=== PATIENT | male | born 1965 | race Caucasian/White ===

== ENCOUNTER 2022-11-30 00:37 | Emergency (ER) | payer OTHER, SELFPAY ==
[2022-11-30 00:39] VITALS: BP 125/88; PULSE 61; RESP 19; TEMP 36.6; O2SAT 95; BMI 32.0
--- NOTE | 2022-11-30 00:41 | CTR_ITS ---
PROCEDURE INFORMATION: Exam: CT Abdomen And Pelvis With Contrast Exam date and time: 11/30/2022 1:10 AM Age: 57 years old Clinical indication: Abdominal pain; Generalized; Patient HX: Patient was having diffuse abd pain with nausea prior to using bathroom and having syncopal episode. TECHNIQUE: Imaging protocol: Computed tomography of the abdomen and pelvis with contrast. Radiation optimization: All CT scans at this facility use at least one of these dose optimization techniques: automated exposure control; mA and/or kV adjustment per patient size (includes targeted exams where dose is matched to clinical indication); or iterative reconstruction. Contrast material: OMNI 350; Contrast volume: 100 ml; Contrast route: INTRAVENOUS (IV); REPORTING DATA: Count of CT and Cardiac NM exams in prior 12 months: This patient has received 0 known CTs and 0 known cardiac nuclear medicine studies in the 12 months prior to the current study. COMPARISON: CR (CHEST, ) 11/30/2022 1:00 AM RADIATION DOSE METRICS: Total DLP (mGy-cm): 1042.24 FINDINGS: Lungs: The lung bases are clear. No effusion Liver: Normal. No mass. Gallbladder and bile ducts: No wall thickening, pericholecystic fluid or stones. Pancreas: Normal. No ductal dilation. Spleen: Normal. No splenomegaly. Adrenal glands: Normal. No mass. Kidneys and ureters: Normal. No hydronephrosis. Stomach and bowel: Mild amount of formed stool in the colon. Appendix: No evidence of appendicitis. Intraperitoneal space: Unremarkable. No free air. No significant fluid collection. Vasculature: Unremarkable. No abdominal aortic aneurysm. Lymph nodes: Unremarkable. No enlarged lymph nodes. Urinary bladder: Unremarkable as visualized. Reproductive: Unremarkable as visualized. Bones/joints: Unremarkable. No acute fracture. Soft tissues: Unremarkable. CT/CT abdomen pelvis w con* [id number] IMPRESSION: Mild constipation.
--- NOTE | 2022-11-30 00:41 | XRR_ITS ---
PROCEDURE INFORMATION: Exam: XR Chest Exam date and time: 11/30/2022 1:00 AM Age: 57 years old Clinical indication: Other: Syncope; Patient HX: Syncopal episode TECHNIQUE: Imaging protocol: Radiologic exam of the chest. Views: 1 view. COMPARISON: CR XR cervical spine fl/ex [id number] 11/13/2016 2:17 PM FINDINGS: Lungs: There are low lung volumes. Otherwise, the lungs are clear. Pleural spaces: Unremarkable. No pleural effusion. No pneumothorax. Heart/Mediastinum: Unremarkable. No cardiomegaly. Bones/joints: Unremarkable. XR/XR chest 1V portable [id number] IMPRESSION: There are low lung volumes. Otherwise, the lungs are clear.
--- NOTE | 2022-11-30 00:41 | CTR_ITS ---
PROCEDURE INFORMATION: Exam: CT Head Without Contrast Exam date and time: 11/30/2022 1:05 AM Age: 57 years old Clinical indication: Injury or trauma; Fall; Blunt trauma (contusions or hematomas); Syncope and collapse; Patient HX: Patient had syncopal episode while standing up from toilet at home. Struck head. Abrasion to frontal. TECHNIQUE: Imaging protocol: Computed tomography of the head without contrast. Radiation optimization: All CT scans at this facility use at least one of these dose optimization techniques: automated exposure control; mA and/or kV adjustment per patient size (includes targeted exams where dose is matched to clinical indication); or iterative reconstruction. REPORTING DATA: Count of CT and Cardiac NM exams in prior 12 months: This patient has received 0 known CTs and 0 known cardiac nuclear medicine studies in the 12 months prior to the current study. COMPARISON: CR XR cervical spine fl/ex [id number] 11/13/2016 2:17 PM RADIATION DOSE METRICS: Total DLP (mGy-cm): 1135.68 FINDINGS: Brain: No acute abnormality. No edema or mass effect. No hemorrhage. Cerebral ventricles: No acute abnormality. No significant ventriculomegaly. Paranasal sinuses: Minimal to mild sinus mucosal thickening without sinus fluid or air fluid level. Mastoid air cells: No acute abnormality. No significant mastoid effusion. Bones/joints: No acute osseous abnormality. No acute fracture. Soft tissues: No significant soft tissue abnormalities. CT/CT head wo con* [id number] IMPRESSION: No evidence of acute intracranial abnormality.
--- NOTE | 2022-11-30 00:41 | ECG_ITS ---
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 Measurements Intervals [place] Rate: 58 P: 9 [place]: 163 QRS: -8 QRSD: 101 T: -15 QT: 434 QTc: 428 Interpretive Statements SINUS BRADYCARDIA SEPTAL MYOCARDIAL INFARCTION , PROBABLY RECENT [40+ ms Q WAVE IN V1/V2] PROBABLE LATERAL MYOCARDIAL INFARCTION , OF INDETERMINATE AGE [35 ms Q WAVE IN I/aVL/V5/V6] No previous ECG available for comparison Electronically Signed On 12-02-2022 6:11:17 CDT by Tri Santana M.D. [email or web address] [email or web address]/NU/[id number] f
--- NOTE | 2022-11-30 00:44 | W.ED.SYNCOPE ---
HPI - Syncope General: Chief Complaint: Syncope Stated Complaint: syncope/fall Time Seen by Provider: 11/30/22 00:38 Source: patient Mode of arrival: ambulatory Limitations: no limitations History of Present Illness: Patient is a 57-year-old male states he had gotten up tonight states he having some abdominal pain and felt nauseous feel he can go the bathroom he went and sat on the toilet did not have a bowel movement still having abdominal pain after got up to the toilet he felt lightheaded and had a syncopal event he did hit his head when he syncopized his and found him he is now awake and alert he states that he just feels kind of weak and still has the abdominal pain is diffuse in nature he rates it a 5 out of 10 he has had nausea as well he denies any chest pain he does have a slight headache from where he hit his head no lacerations Associated symptoms: Reports abdominal pain, headache(s) and nausea; Deny chest pain or fever(s) Review of Systems Const: Denies: fever(s) or chills Eyes: Denies: eye discomfort ENMT: Denies: throat pain or dental pain Card: Reports: syncope; Denies: chest pain Resp: Denies: dyspnea GI: Reports: abdominal pain and nausea; Denies: vomiting or diarrhea : Denies: dysuria Musc: Denies: neck pain or back pain Skin/Breast: Denies: rash Neuro: Reports: headache(s) [facility] PFSH: Medical History (Updated 11/30/22 @ 03:36 by Elysia Prince MD) No pertinent past medical history Social History (Updated 11/30/22 @ 00:46 by Elysia Prince MD) Substance/Drug Use: never Physical Exam Const: COMMON NORMALS: patient oriented x3 HENMT: COMMON NORMALS: normocephalic HEAD & SCALP: normocephalic Eye: COMMON NORMALS: Equal, round and reactive pupils present and EOMs intact bilaterally PUPIL: Yes Equal, round and reactive pupils present Neck/C-Spine: COMMON NORMALS: full ROM and supple Chest: COMMONS NORMALS: normal inspection of the chest and normal palpation of entire chest wall Resp: COMMON NORMALS: normal respiratory effort, No retractions, No use of accessory muscles and clear to auscultation bilaterally AUSCULTATION: clear to auscultation bilaterally Cardio: COMMON NORMALS: regular rate, regular rhythm and No murmurs present (Cardio) RATE: regular rate RHYTHM: regular rhythm GI: COMMON NORMALS: Normal to inspection, nondistended, normoactive bowel sounds present, Soft to palpation and no masses PALPATION: Yes Soft to palpation OTHER: diffuse tenderness Extremity: COMMON NORMALS: normal to inspection and full ROM Neuro: COMMON NORMALS: patient oriented x3, moves all extremities and no focal motor deficits Psych: COMMON NORMALS: mental status grossly normal, Normal thought process present and cooperative THOUGHT PROCESS: Normal thought process present Skin: COMMON NORMALS: no rashes or lesions noted and no wounds GENERAL SKIN EXAM: no rashes or lesions noted Course Vital Signs: Vital signs: Vital Signs Temperature 97.8 F 11/30/22 00:39 Pulse Rate 80 11/30/22 03:45 Respiratory Rate 20 H 11/30/22 01:33 Blood Pressure 131/89 11/30/22 03:45 Pulse Oximetry 100 11/30/22 03:45 Oxygen Delivery Me thod Room Air 11/30/22 03:14 MDM - Syncope Medical Decision Making Patient presents with a syncopal event loss with abdominal pain and syncopal event is likely a vasovagal episode from going to the bathroom and is nausea and pain blood work including 2 troponins are normal here CT of his head and abdominal been is normal. He is stable for discharge he feels much improved he is to follow-up with PCP and return if worsening Lab Data 11/30/22 00:47 11/30/22 00:47 Radiology Impressions Abdomen/Pelvis CT 11/30/22 00:41 IMPRESSION: Mild constipation. Chest X-Ray 11/30/22 00:41 IMPRESSION: There are low lung volumes. Otherwise, the lungs are clear. Head CT 11/30/22 00:41 IMPRESSION: No evidence of acute intracranial abnormality. Laboratory Results WBC 10.8 10^3/uL (4.0-10.0) H 11/30/22 00:47 RBC 4.28 10^6/uL (4.1-5.3) 11/30/22 00:47 Hgb 12.3 g/dL (11.7-16.6) 11/30/22 00:47 Hct 37.7 % (42.0-52.0) L 11/30/22 00:47 MCV 88.1 fl (80-94) 11/30/22 00:47 MCH 28.7 pg (28.0-34.0) 11/30/22 00:47 MCHC 32.6 g/dL (30.0-36.0) 11/30/22 00:47 RDW 12.7 % (12.1-15.1) 11/30/22 00:47 Plt Count 286 10^3/cmm (130-400) 11/30/22 00:47 MPV 10.8 fL (7.4-10.4) H 11/30/22 00:47 Neut % (Auto) 47.0 % 11/30/22 00:47 Lymph % (Auto) 41.7 % 11/30/22 00:47 Morrow % (Auto) 7.4 % 11/30/22 00:47 Eos % (Auto) 3.0 % 11/30/22 00:47 Baso % (Auto) 0.6 % 11/30/22 00:47 Neut # (Auto) 5.07 10^3/uL (1.8-7.7) 11/30/22 00:47 Lymph # (Auto) 4.5 10^3/uL (0.8-4.8) 11/30/22 00:47 Morrow # (Auto) 0.8 10^3/uL (0.2-0.9) 11/30/22 00:47 Eos # (Auto) 0.3 10^3/uL (0.0-0.8) 11/30/22 00:47 Baso # (Auto) 0.1 10^3/uL (0.0-0.1) 11/30/22 00:47 Nucleated RBC % (auto) 0 % 11/30/22 00:47 Nucleated RBCs # 0.0 /100WBC 11/30/22 00:47 Sodium 138 mmol/L (136-145) 11/30/22 00:47 Potassium 3.6 mmol/L (3.5-5.1) 11/30/22 00:47 Chloride 103 mmol/L (98-107) 11/30/22 00:47 Carbon Dioxide 23 mmol/L (22-29) 11/30/22 00:47 Anion Gap 15.6 (5-19) 11/30/22 00:47 BUN 19 mg/dL (6-20) 11/30/22 00:47 Creatinine 1.0 mg/dL (0.7-1.2) 11/30/22 00:47 GFR Calculation 77.3 mL/min (90-130) L 11/30/22 00:47 Glucose 124 mg/dL (65-115) H 05 00:47 Calculated Osmolality 290 mOsm/kg (285-295) 11/30/22 00:47 Calcium 8.9 mg/dL (8.5-10.5) 11/30/22 00:47 Total Bilirubin 0.3 mg/dL (0.15-1.2) 11/30/22 00:47 AST 22 U/L (0-40) 11/30/22 00:47 ALT 26 U/L (0-41) 11/30/22 00:47 Alkaline Phosphatase 61 U/L (40-130) 11/30/22 00:47 Troponin T Baseline 9 ng/L (0-15) 11/30/22 00:47 Troponin T 120 Minute 8.89 ng/L (0-15) 11/30/22 03:09 Delta Troponin T -0.11 ABS# (0-10) L 11/30/22 03:09 Total Protein 6.9 g/dL (6.6-8.7) 11/30/22 00:47 Albumin 4.4 g/dL (3.5-5.2) 11/30/22 00:47 Globulin 2.5 g/dL (1.3-4.6) 11/30/22 00:47 Lipase 40 U/L (13-60) 11/30/22 00:47 EKG Data EKG 1: I personally reviewed and interpreted this EKG as follows: EKG interpretation date: 11/30/22 EKG interpretation time: 00:41 Interpretation: sinus lili hr [address] or t wave abnormalities qrs 101 qtc 431 Discharge Plan Discharge Patient Disposition: Home Clinical Impression: Syncope, Abdominal pain Prescriptions: New ondansetron 4 mg tablet,disintegrating 4 mg PO Q6H PRN (Reason: nausea and vomiting) Qty: 14 0RF No Action erythromycin 500 mg tablet 500 mg PO BID 10 Days Qty: 20 0RF Discharge Orders: Discharge ED (Routine); Ordered 11/30/22 Ordered By: Elysia Prince Referrals: Sterling Garvin FNP [Nurse Practitioner] - 1-3 days Discharge Diet: Advance as tolerated Discharge Activity: Resume usual activity Patient Instructions: Syncope (ED), Abdominal Pain (ED) Coding Level of Care Code ED 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
[2022-11-30] MEDS: ondansetron 2 mg/ML SDV 2 mL 4 MG IVP ×2 (00:45→02:10)
[2022-11-30] MEDS: sodium chloride 0.9% 1,000 ML 999 ML IV ×2 (00:46→02:11)
[2022-11-30 01:00] LABS: Basophils # 0.1 10^3/uL (0.0-0.1); Basophils % 0.6 %; Eosinophils # 0.3 10^3/uL (0.0-0.8); Hematocrit 37.7 % (42.0-52.0); Hemoglobin 12.3 g/dL (11.7-16.6); Lymphocytes # 4.5 10^3/uL (0.8-4.8); Lymphocytes % 41.7 %; Mean Corpuscular HGB Conc 32.6 g/dL (30.0-36.0); Mean Corpuscular Hemoglobin 28.7 pg (28.0-34.0); Mean Corpuscular Volume 88.1 fl (80-94); Mean Platelet Volume 10.8 fL (7.4-10.4); Monocytes # 0.8 10^3/uL (0.2-0.9); Monocytes % 7.4 %; Neutrophils # 5.07 10^3/uL (1.8-7.7); Nucleated Red Blood Cells % 0 %; Platelet Count 286 10^3/cmm (130-400); Red Blood Count 4.28 10^6/uL (4.1-5.3); Red Cell Distribution Width 12.7 % (12.1-15.1); White Blood Count 10.8 10^3/uL (4.0-10.0)
[2022-11-30] MEDS: iohexol 350 mg/mL 500 mL Btl (per mL) IV (01:07)
[2022-11-30 01:15] LABS: Alanine Aminotransferase 26 U/L (0-41); Albumin Level 4.4 g/dL (3.5-5.2); Alkaline Phosphatase 61 U/L (40-130); Anion Gap 15.6 (5-19); Aspartate Amino Transferase 22 U/L (0-40); Blood Urea Nitrogen 19 mg/dL (6-20); Calcium 8.9 mg/dL (8.5-10.5); Carbon Dioxide 23 mmol/L (22-29); Chloride 103 mmol/L (98-107); Globulin 2.5 g/dL (1.3-4.6); Glomerular Filtration Rate 77.3 mL/min (90-130); Glucose 124 mg/dL (65-115); Lipase 40 U/L (13-60); Osmolality Calculated 290 mOsm/kg (285-295); Potassium 3.6 mmol/L (3.5-5.1); Sodium 138 mmol/L (136-145); Total Bilirubin 0.3 mg/dL (0.15-1.2); Total Protein 6.9 g/dL (6.6-8.7)
[2022-11-30 01:17] LABS: Troponin(5th) Baseline 9 ng/L (0-15)
[2022-11-30 01:33] VITALS: BP 117/86; PULSE 64; RESP 20; O2SAT 100
--- NOTE | 2022-11-30 02:41 | ECG_ITS ---
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 Measurements Intervals [place] Rate: 77 P: -3 NM: 160 QRS: -11 QRSD: 98 T: -12 QT: 378 QTc: 429 Interpretive Statements SINUS RHYTHM POSSIBLE LEFT ATRIAL ENLARGEMENT [-0.1mV P-WAVE IN V1/V2] SEPTAL MYOCARDIAL INFARCTION , OF INDETERMINATE AGE [40+ ms Q WAVE IN V1/V2] PROBABLE LATERAL MYOCARDIAL INFARCTION , PROBABLY OLD [35 ms Q WAVE IN I/aVL/V5/V6] No previous ECG available for comparison Electronically Signed On 12-02-2022 6:57:33 CDT by Tri Santana M.D. [email or web address] [email or web address].[employer]/store/OM/[id number]/[id number]
[2022-11-30 03:10] VITALS: BP 109/69; BP 131/84; BP 134/87; PULSE 82; PULSE 83; PULSE 85
[2022-11-30 03:14] VITALS: PULSE 81; O2SAT 99
[2022-11-30 03:33] LABS: Troponin 5 2HR 8.89 ng/L (0-15)
[2022-11-30 03:45] VITALS: BP 131/89; PULSE 80; O2SAT 100
[2022-11-30 03:52] LABS: Troponin 5 2HR Delta -0.11 ABS# (0-10)
--- NOTE | 2022-12-13 13:21 | DCPLANNER ---
TCM called patient due to no primary care physician - no answer at this time.
== END 2022-11-30 03:46 | disposition home or self-care (01) ==
PROVIDERS: Emergency Provider Emergency Medicine
DX: R55 Syncope and collapse (principal); R10.9 Unspecified abdominal pain
CPT/HCPCS: 70450; 71045; 74177; 80053; 83690; 84484; 85025; 93005; 96361; 96374; 96376; 99285; J2405; J7030; Q9967

== ENCOUNTER 2023-01-22 15:40 | Outpatient (CLI) | payer OTHER, SELFPAY ==
--- NOTE | 2023-01-22 16:26 | XRR_ITS ---
PROCEDURE INFORMATION: Exam: XR Right Hip Exam date and time: 01/22/2023 4:27 PM Age: 57 years old Clinical indication: Hip pain; Right hip; Additional info: Chronic R hip pain TECHNIQUE: Imaging protocol: Radiologic exam of the right hip. Views: 1 view hip with pelvis when performed. COMPARISON: CT abdomen pelvis w con* [id number] 11/30/2022 1:10 AM FINDINGS: Bones/joints: Moderate degenerative change of the right hip joint. No evidence of fracture or dislocation. There is joint space narrowing with hypertrophic spurring. Soft tissues: Unremarkable. XR/XR hip RT 2-3V wo/w pel* [id number] IMPRESSION: Moderate degenerative changes of the right hip joint.
== END 2023-01-22 15:41 | disposition home or self-care (01) ==
PROVIDERS: PCP Family Medicine; Visit Provider Family Medicine
DX: M25.551 Pain in right hip (principal); R55 Syncope and collapse; Z76.89 Persons encountering health services in other specified circumstances; G89.29 Other chronic pain; Z12.5 Encounter for screening for malignant neoplasm of prostate; Z11.59 Encounter for screening for other viral diseases
CPT/HCPCS: 73502; 80053; 80061; 83036; 84443; 85025; 86803; 87806; G0103